=== PATIENT | female | born 1975 | race Caucasian/White ===

== ENCOUNTER 2017-12-05 13:06 | Emergency (ER) | payer MEDICAID ==
[~2017-12-05] VITALS: Ht 165.1 cm; Wt 86.0 kg
[~2017-12-05 13:06] MED LIST: ALBU18HF2 IH; CITA40TA11 PO; CLAR500T PO; LAMO150T PO; LORA10TA7 PO; OMEP20TA15 PO; TRAZ-132 PO
[2017-12-05] MEDS ORDERED: KETOROLAC 60MG/2ML VIAL IM STA (14:50)
[2017-12-05] MEDS ORDERED: ACETAMINOPHEN WITH CODEINE 300/30MG TABLET PO STA (14:56)
[2017-12-05 15:42] VITALS: BP 141/95
== END 2017-12-05 15:44 | disposition home or self-care (01) ==
LOC: ER 13:50
DX: S02.5XXA Fracture of tooth (traumatic), initial encounter for closed fracture (principal); K02.9 Dental caries, unspecified; E11.9 Type 2 diabetes mellitus without complications; I10 Essential (primary) hypertension; G43.909 Migraine, unspecified, not intractable, without status migrainosus; X58.XXXA Exposure to other specified factors, initial encounter; F17.200 Nicotine dependence, unspecified, uncomplicated; Z85.9 Personal history of malignant neoplasm, unspecified; Z88.0 Allergy status to penicillin; Z85.72 Personal history of non-Hodgkin lymphomas; Z90.710 Acquired absence of both cervix and uterus
CPT/HCPCS: 99283

== ENCOUNTER 2017-12-20 06:43 | Emergency (ER) | payer MEDICAID ==
[~2017-12-20] VITALS: Ht 162.6 cm; Wt 86.2 kg
[2017-12-20] MEDS ORDERED: METOCLOPRAMIDE HCL 10MG/2ML VIAL IV ONE (09:15)
[2017-12-20] MEDS ORDERED: KETOROLAC 30MG/ML VIAL IV ONE (09:15)
[2017-12-20 09:44] VITALS: BP 131/78
[2017-12-20] MEDS ORDERED: LORAZEPAM 1MG TABLET PO ONE (10:30)
== END 2017-12-20 11:03 | disposition left against medical advice (07) ==
LOC: ER 08:59
DX: G43.909 Migraine, unspecified, not intractable, without status migrainosus (principal); I10 Essential (primary) hypertension; E11.9 Type 2 diabetes mellitus without complications; G40.909 Epilepsy, unspecified, not intractable, without status epilepticus; F17.200 Nicotine dependence, unspecified, uncomplicated; Z85.79 Personal history of other malignant neoplasms of lymphoid, hematopoietic and related tissues; Z88.0 Allergy status to penicillin; Z88.2 Allergy status to sulfonamides; Z90.710 Acquired absence of both cervix and uterus
CPT/HCPCS: 96374; 96375; 99284; J1885; J2765

== ENCOUNTER 2017-12-31 21:07 | Emergency (ER) | payer MEDICAID ==
[~2017-12-31] VITALS: Ht 165.1 cm; Wt 87.0 kg
[2017-12-31] MEDS ORDERED: KETOROLAC 30MG/ML VIAL IV STA (23:35)
[2018-01-01 00:58] LABS: CHLORIDE 105 mEq/L (98-107)
[2018-01-01 01:01] LABS: BASOPHILS % 0.5 % (0.0-2.0); EOSINOPHILS % 0.3 % (0.0-5.0); HEMATOCRIT. 41.1 % (36.0-48.0); LYMPHOCYTES % 25.1 % (20.0-50.0); MEAN CORPUSCULAR HEMOGLOBIN 33.7 pg (28.0-32.0); MEAN CORPUSCULAR VOLUME 99.2 fL (81.0-99.0); MEAN PLATELET VOLUME 6.8 fl (7.4-10.4); MONOCYTES % 6.9 % (2.0-8.0); NEUTROPHILS % 67.2 % (40.0-76.0); PLATELET 457 x1000/uL (130-400); RED BLOOD CELL COUNT 4.14 mill/uL (4.2-5.4); RED CELL DISTRIBUTION WIDTH 13.3 % (11.6-14.6)
[2018-01-01 01:02] LABS: PROTHROMBIN TIME 10.4 sec (9.4-11.6)
[2018-01-01 01:40] VITALS: BP 138/88
[2018-01-01 01:55] LABS: CLARITY URINE CLOUDY (CLEAR); COLOR URINE YELLOW (YELLOW); KETONES URINE 1+ (NEGATIVE); LEUKOCYTE ESTERASE URINE NEGATIVE (NEGATIVE); NITRITE URINE NEGATIVE (NEGATIVE); OCCULT BLOOD URINE NEGATIVE (NEGATIVE); PROTEIN URINE NEGATIVE (NEGATIVE)
== END 2018-01-01 03:15 | disposition left against medical advice (07) ==
LOC: ER 21:08 → CANBEDREQ 01-01 02:27 → ER 01-01 03:06
DX: F41.9 Anxiety disorder, unspecified (principal); R51 Headache; M79.1 Myalgia; R50.9 Fever, unspecified; I10 Essential (primary) hypertension; E11.9 Type 2 diabetes mellitus without complications; F31.9 Bipolar disorder, unspecified; C95.91 Leukemia, unspecified, in remission; F17.200 Nicotine dependence, unspecified, uncomplicated; Z88.0 Allergy status to penicillin; Z88.2 Allergy status to sulfonamides; Z88.8 Allergy status to other drugs, medicaments and biological substances; Z86.718 Personal history of other venous thrombosis and embolism
CPT/HCPCS: 36415; 71045; 80053; 81003; 81025; 82962; 83605; 83880; 84484; 85025; 85610; 87040; 87086; 87804; 93005; 99285; Z7610

== ENCOUNTER 2018-07-25 05:47 | Emergency (ER) | payer MEDICAID ==
[~2018-07-25] VITALS: Ht 165.1 cm; Wt 79.0 kg
[~2018-07-25 05:47] MED LIST changes: -TRAZ-132 PO; +TRAZ-213 PO
[2018-07-25] MEDS ORDERED: SODIUM CHLORIDE 0.9% 1,000 ML IV ONE (06:46)
[2018-07-25] MEDS ORDERED: HYDROCODONE/ACETAMINOPHEN 5/325MG TABLET PO STA (06:46)
[2018-07-25] MEDS ORDERED: MORPHINE SULFATE 10 MG/ML CPJ IV ONE (07:15)
[2018-07-25 07:21] LABS: CHLORIDE 111 mEq/L (98-107)
[2018-07-25 07:22] LABS: BASOPHILS % 1.3 % (0.0-2.0); EOSINOPHILS % 0.7 % (0.0-5.0); HEMATOCRIT. 37.4 % (36.0-48.0); HEMOGLOBIN. 12.8 g/dL (12.0-16.0); LYMPHOCYTES % 30.6 % (20.0-50.0); MEAN CORPUSCULAR HEMOGLOBIN 34.7 pg (28.0-32.0); MEAN CORPUSCULAR VOLUME 101.1 fL (81.0-99.0); MEAN PLATELET VOLUME 7.2 fl (7.4-10.4); MONOCYTES % 6.6 % (2.0-8.0); NEUTROPHILS % 60.8 % (40.0-76.0); PLATELET 372 x1000/uL (130-400); RED CELL DISTRIBUTION WIDTH 14.2 % (11.6-14.6)
[2018-07-25 07:23] LABS: PROTHROMBIN TIME 9.7 sec (9.1-11.1)
[2018-07-25 07:25] LABS: ETHANOL BLOOD < 10 mg/dL
[2018-07-25 07:36] LABS: CARBAMAZEPINE < 0.5 ug/mL (4-12); PHENOBARBITAL < 2.1 ug/mL (15.0-40.0)
[2018-07-25 07:42] LABS: CLARITY URINE CLEAR (CLEAR); COLOR URINE YELLOW (YELLOW); KETONES URINE NEGATIVE (NEGATIVE); LEUKOCYTE ESTERASE URINE NEGATIVE (NEGATIVE); NITRITE URINE NEGATIVE (NEGATIVE); OCCULT BLOOD URINE 2+ (NEGATIVE); PH URINE 6.5 (4.5-8.0); PROTEIN URINE NEGATIVE (NEGATIVE); SPECIFIC GRAVITY URINE 1.009 (1.005-1.030); UROBILINOGEN URINE 0.2 E.U./dL (0.2-1.0)
[2018-07-25] MEDS ORDERED: PHENYTOIN SODIUM 1,000 MG in SODIUM CHLORIDE 0.9% 100 ML IV ONE (08:00)
[2018-07-25 08:06] LABS: *BARBITURATES SCREEN URINE NEGATIVE (NEGATIVE); *BENZODIAZEPINES SCREEN URINE NEGATIVE (NEGATIVE)
[2018-07-25 08:08] LABS: *AMPHETAMINES SCREEN URINE NEGATIVE (NEGATIVE); *COCAINE SCREEN URINE NEGATIVE (NEGATIVE); CANNABINOID URINE SCREEN NEGATIVE (NEGATIVE); METHADONE URINE SCREEN NEGATIVE (NEGATIVE); PHENCYCLIDINE URINE SCREEN NEGATIVE (NEGATIVE)
[2018-07-25 08:09] LABS: OPIATES URINE SCREEN PRESUMTIVE POSITIVE (NEGATIVE)
[2018-07-25 08:40] LABS: HCG SCREEN NEGATIVE
[2018-07-25] MEDS ORDERED: DIPHENHYDRAMINE 50MG/ML VIAL IV ONE (09:00)
[2018-07-25] MEDS ORDERED: VALACYCLOVIR HCL 500MG TABLET PO STA (09:49)
[2018-07-25] MEDS ORDERED: PREDNISONE 20MG TABLET PO ONE (10:00)
[2018-07-25 10:26] VITALS: BP 128/68
== END 2018-07-25 10:29 | disposition home or self-care (01) ==
LOC: ER 07:58
DX: G51.0 Bell's palsy (principal); G40.909 Epilepsy, unspecified, not intractable, without status epilepticus; I10 Essential (primary) hypertension; E11.9 Type 2 diabetes mellitus without complications; F11.10 Opioid abuse, uncomplicated; F17.200 Nicotine dependence, unspecified, uncomplicated; F12.10 Cannabis abuse, uncomplicated; E87.8 Other disorders of electrolyte and fluid balance, not elsewhere classified; Z85.79 Personal history of other malignant neoplasms of lymphoid, hematopoietic and related tissues; Z91.14 Patient's other noncompliance with medication regimen; Z88.8 Allergy status to other drugs, medicaments and biological substances; Z88.0 Allergy status to penicillin; Z88.2 Allergy status to sulfonamides; Z90.49 Acquired absence of other specified parts of digestive tract
CPT/HCPCS: 36415; 70450; 80053; 80156; 80165; 80184; 80185; 80305; 81003; 84484; 84703; 85025; 85610; 93005; 96365; 96366; 96375; 99284; G0482; J1165; J1200; J2270; J7030; J7512; J7050